=== PATIENT | female | born 1985 | race Caucasian/White ===

== ENCOUNTER → 2018-04-11 16:25 | Outpatient (CLI) | payer OTHER, SELFPAY ==
[2018-04-11 17:43] LABS: Free T4, Direct Thyroxine 0.94 ng/dL (0.78-2.19)
[2018-04-11 17:57] LABS: Thyroid Stimulating Hormone 0.83 uIU/mL (0.47-4.68)
== END ==
PROVIDERS: PCP Family Medicine; Visit Provider Obstetrics & Gynecology
DX: R53.83 Other fatigue (principal)
CPT/HCPCS: 36415; 84439; 84443

== ENCOUNTER → 2018-10-16 11:55 | Outpatient (CLI) | payer OTHER, SELFPAY ==
[2018-10-16 12:12] LABS: Add Manual Diff / Slide Review NO; Basophils Absolute Auto 0 /uL (0-100); Basophils Percent Auto 0.3 % (0-2); Eosinophils Absolute Auto 100 /uL (0-450); Eosinophils Percent Auto 1.5 % (2-4); Hematocrit 41.1 % (36-46); Hemoglobin 13.8 g/dL (12.0-16.0); Lymphocytes Absolute Auto 1100 /uL (1100-4500); Lymphocytes Percent Auto 21.4 % (25-40); Mean Corpuscular HGB Conc 33.6 % (30-36); Mean Corpuscular Hemoglobin 30.5 PG (26-34); Mean Corpuscular Volume 90.8 fL (80-100); Monocytes Absolute Auto 600 /uL (0-900); Monocytes Percent Auto 12.1 % (3-14); Neutrophils Absolute Auto 3400 /uL (1500-7000); Neutrophils Percent Auto 64.7 % (50-75); Platelet Count 225 X10^3/uL (150-400); Red Blood Cell Count 4.52 X10^6/uL (4.0-5.2); Red Cell Distribution Width 13.3 % (11.6-14.8); White Blood Cell Count 5.3 X10^3/uL (4.5-11.0)
[2018-10-16 12:54] LABS: Follicle Stimulating Hormone 2.84 mIU/mL
[2018-10-16 13:01] LABS: Free T4, Direct Thyroxine 0.92 ng/dL (0.78-2.19)
[2018-10-16 13:15] LABS: Thyroid Stimulating Hormone 0.91 uIU/mL (0.47-4.68)
[2018-10-17 14:03] LABS: Thyroid Peroxidase Antibodies 1 IU/mL (< 9)
[2018-10-18 20:10] LABS: Estradiol 133 pg/mL
[2018-10-19 07:45] LABS: Progesterone 7.5 ng/mL
== END ==
PROVIDERS: PCP Family Medicine; Visit Provider Obstetrics & Gynecology
DX: R61 Generalized hyperhidrosis (principal)
CPT/HCPCS: 36415; 82670; 83001; 84144; 84439; 84443; 85025; 86376